=== PATIENT | female | born 1945 | race Caucasian/White ===

== ENCOUNTER 2018-05-17 10:41 | Emergency (ER) | payer MEDICARE, BC ==
[~2018-05-17] VITALS: Ht 165.1 cm; Wt 59.1 kg
[2018-05-17 11:00] VITALS: BP 148/87
[2018-05-17] MEDS ORDERED: ibuprofen 200mg tablet PO ONE (12:35)
[2018-05-17] MEDS ORDERED: acetaminophen 325mg tablet PO ONE (12:35)
[2018-05-17] MEDS ORDERED: ACET-812 PO (14:35)
== END 2018-05-17 15:05 | disposition home or self-care (01) ==
LOC: ER 10:41
DX: S52.592A Other fractures of lower end of left radius, initial encounter for closed fracture (principal); S52.612A Displaced fracture of left ulna styloid process, initial encounter for closed fracture; Z79.01 Long term (current) use of anticoagulants; W19.XXXA Unspecified fall, initial encounter; Y93.89 Activity, other specified; Y92.89 Other specified places as the place of occurrence of the external cause; Y99.9 Unspecified external cause status
CPT/HCPCS: 25605; 70450; 73110; 93005; 99284

== ENCOUNTER 2018-05-29 10:42 | Outpatient (CLI) | payer MEDICARE, BC ==
[2018-05-29 10:29] VITALS: BP 140/104
[~2018-05-29 10:42] MED LIST: ACET-812 PO
[2018-05-29 10:51] VITALS: BP 141/91
== END 2018-05-29 11:26 | disposition home or self-care (01) ==
LOC: ORTHO 10:42
PROVIDERS: ATTEND Nurse Practitioner Family
DX: S52.592A Other fractures of lower end of left radius, initial encounter for closed fracture (principal); S52.612A Displaced fracture of left ulna styloid process, initial encounter for closed fracture; W19.XXXA Unspecified fall, initial encounter; X58.XXXA Exposure to other specified factors, initial encounter; Y93.89 Activity, other specified; Y92.89 Other specified places as the place of occurrence of the external cause; Y99.8 Other external cause status
CPT/HCPCS: 73110; 99213; A4590

== ENCOUNTER 2018-06-14 15:06 | Outpatient (CLI) | payer MEDICARE, BC ==
[2018-06-14 15:08] VITALS: BP 150/94
== END 2018-06-14 15:38 | disposition home or self-care (01) ==
LOC: ORTHO 15:06
PROVIDERS: ATTEND Nurse Practitioner Family
DX: S52.615D Nondisplaced fracture of left ulna styloid process, subsequent encounter for closed fracture with routine healing (principal); S52.592D Other fractures of lower end of left radius, subsequent encounter for closed fracture with routine healing; X58.XXXD Exposure to other specified factors, subsequent encounter
CPT/HCPCS: 73110; 99213

== ENCOUNTER 2018-06-28 15:05 | Outpatient (CLI) | payer MEDICARE, BC | END 2018-06-28 15:45 | disposition home or self-care (01) | LOC: ORTHO 15:05 | PROVIDERS: ATTEND Nurse Practitioner Family | DX: S52.92XD Unspecified fracture of left forearm, subsequent encounter for closed fracture with routine healing (principal); W19.XXXD Unspecified fall, subsequent encounter | CPT/HCPCS: 73110; 99213; A4590 ==

== ENCOUNTER 2018-07-12 16:13 | Outpatient (CLI) | payer MEDICARE, BC | END 2018-07-12 16:46 | disposition home or self-care (01) | LOC: ORTHO 16:13 | PROVIDERS: ATTEND Orthopaedic Surgery | DX: S52.592D Other fractures of lower end of left radius, subsequent encounter for closed fracture with routine healing (principal); S52.615D Nondisplaced fracture of left ulna styloid process, subsequent encounter for closed fracture with routine healing; M85.842 Other specified disorders of bone density and structure, left hand; X58.XXXD Exposure to other specified factors, subsequent encounter | CPT/HCPCS: 73110; 99213 ==

== ENCOUNTER → 2018-08-24 | Outpatient (CLI) | payer BC ==
[2018-08-24 11:39] VITALS: BP 119/74
== END | disposition home or self-care (01) ==
LOC: ORTHO 11:37
PROVIDERS: ATTEND Orthopaedic Surgery
DX: S52.592D Other fractures of lower end of left radius, subsequent encounter for closed fracture with routine healing (principal); X58.XXXD Exposure to other specified factors, subsequent encounter
CPT/HCPCS: 73110; 99213

== ENCOUNTER 2022-05-28 12:34 | Emergency (ER) | payer MEDICARE, BC ==
[~2022-05-28] VITALS: Ht 165.1 cm; Wt 40.0 kg
[~2022-05-28 12:34] MED LIST changes: -ACET-812 PO; +ATEN-236 PO; +WARF1TAB83 PO
[2022-05-28 12:45] VITALS: BP 126/82
[2022-05-28] MEDS ORDERED: acetaminophen 325mg tablet PO ONE (14:10)
[2022-05-30] MEDS ORDERED: WARF-65 PO (07:56)
[2022-05-30] MEDS ORDERED: CEPH-585 PO (14:13)
[2022-05-30] MEDS ORDERED: IBUP-1985 PO (14:13)
[2022-05-30] MEDS ORDERED: CYCL-1 PO (14:13)
== END 2022-05-28 15:22 | disposition home or self-care (01) ==
LOC: ER 12:36
DX: S16.1XXA Strain of muscle, fascia and tendon at neck level, initial encounter (principal); R51.9 Headache, unspecified; R11.0 Nausea; R42 Dizziness and giddiness; Z88.8 Allergy status to other drugs, medicaments and biological substances; Z79.899 Other long term (current) drug therapy; Z79.1 Long term (current) use of non-steroidal anti-inflammatories (NSAID); X58.XXXA Exposure to other specified factors, initial encounter; Y93.89 Activity, other specified; Y92.89 Other specified places as the place of occurrence of the external cause; Y99.8 Other external cause status
CPT/HCPCS: 36415; 85610; 99283

== ENCOUNTER → 2022-05-30 | Emergency (ER) | payer MEDICARE, BC ==
[~2022-05-30] MED LIST changes: +CEPH-585 PO; +CYCL-1 PO; +CefTRIAXone 2gm/D5W 50ml BAG 50 ML IV ONE; +IBUP-1985 PO; +WARF-65 PO; +diphenhydrAMINE 50 mg/ml inj IV STA; +iohexol 300mg/ml 100ml inj. ONE; +methylPREDNISolone sod succ 125mg/2ml vial IV ONE
[2022-05-30 08:31] LABS: BASOPHILS # (AUTO) 0.1 X10'3 (0-0.2); BASOPHILS % (AUTO) 0.9 % (0-1); EOSINOPHILS # (AUTO) 0.1 X10'3 (0-0.9); EOSINOPHILS % (AUTO) 0.9 % (0-6); HEMOGLOBIN 15.4 g/dl (12.0-16.0); LYMPHOCYTES # (AUTO) 0.6 X10'3 (1.1-4.8); LYMPHOCYTES % (AUTO) 11.2 % (21-51); MEAN CORPUSCULAR HEMOGLOBIN 33.5 PG (27.0-31.0); MEAN CORPUSCULAR HGB CONC 34.2 g/dL (33.0-36.5); MEAN CORPUSCULAR VOLUME 97.9 FL (78-98); MEAN PLATELET VOLUME 8.6 FL (7.4-10.4); MONOCYTES # (AUTO) 0.5 X10'3 (0-0.9); MONOCYTES % (AUTO) 9.4 % (2-12); NEUTROPHILS # (AUTO) 4.4 X10'3 (1.8-7.7); NEUTROPHILS % (AUTO) 77.6 % (42-75); PLATELET COUNT 195 X10'3 (140-440); RED BLOOD COUNT 4.59 X10'6 (4.20-5.60); RED CELL DISTRIBUTION WIDTH 12.9 % (11.5-14.5); WHITE BLOOD COUNT 5.7 X10'3 (4.5-11.0)
[2022-05-30 08:45] LABS: APTT 41 SECONDS (22-32)
[2022-05-30 08:51] LABS: ALANINE AMINOTRANSFERASE 14 U/L (12-78); ALBUMIN 3.7 G/DL (3.4-5.0); ALKALINE PHOSPHATASE 76 IU/L (46-116); ANION GAP 8 (8-16); ASPARTATE AMINO TRANSFERASE 20 U/L (10-37); BILIRUBIN,TOTAL 1.1 MG/DL (0.1-1.0); BLOOD UREA NITROGEN 7 MG/DL (7-18); BUN/CREATININE RATIO 10.8 (6.6-38.0); CALCIUM 9.4 MG/DL (8.5-10.1); CHLORIDE 100 MMOL/L (99-107); CREATINE KINASE 19 U/L (26-192); CREATININE 0.65 MG/DL (0.40-0.90); GLUCOSE 101 MG/DL (70-104); MAGNESIUM 1.9 MG/DL (1.5-2.4); POTASSIUM 3.9 MMOL/L (3.5-5.1); SODIUM 134 MMOL/L (135-145); TOTAL PROTEIN 7.5 G/DL (6.4-8.2); eGFR 88 ML/MIN
--- NOTE | 2022-05-30 09:15 | NUR ---
pt off floor
--- NOTE | 2022-05-30 09:23 | NUR ---
pt back from ct
--- NOTE | 2022-05-30 11:50 | NUR ---
[facility] samples sent to lab . pt resting in [facility]. pt's son, Volodymyr, at bedside.
[2022-05-30 12:35] LABS: APPEARANCE,CSF CLEAR; CSF RBC 1 /CU MM (0); CSF SUPERNATANT COLOR COLORLESS; CSF VOLUME 2.4 ML; TUBE# COUNTED 4
[2022-05-30 12:38] LABS: CSF WBC CT 0 /CU MM (0-5)
[2022-05-30 12:53] LABS: CLARITY,URINE CLEAR (Clear); COLOR,URINE YELLOW (Yellow); GLUCOSE, URINE NEGATIVE (Neg); KETONES,URINE 15 mg/dl (Neg); LEUKOCYTE ESTERASE ,URINE NEGATIVE (Neg); NITRITES, URINE NEGATIVE (Neg); OCCULT BLOOD,URINE SMALL (Neg); PROTEIN,URINE NEGATIVE (Neg); UROBILINOGEN,URINE 0.2 E.U/dL (0.2-1.0)
[2022-05-30 12:57] LABS: UA COLLECTION TYPE CLN CATCH MIDSTREAM
[2022-05-30 13:00] LABS: RBC,URINE 0-2 /HPF (0-2)
[2022-05-30 13:01] LABS: BACTERIA,URINE 1+ /HPF (Neg); MUCUS STRANDS NONE SEEN /LPF (Neg); SQUAMOUS EPITHELIAL CELL,UR MODERATE /LPF (FEW)
[2022-05-30 13:02] LABS: WBC CLUMPS,URINE FEW /HPF (NEGATIVE)
[2022-05-30 14:32] LABS: GLUCOSE,CSF 59 MG/DL (40-75); TOTAL PROTEIN,CSF 39 MG/DL (30-60)
[2022-05-30 14:41] VITALS: BP 138/83
== END | disposition home or self-care (01) ==
LOC: ER 07:12
DX: S16.1XXA Strain of muscle, fascia and tendon at neck level, initial encounter (principal); M54.12 Radiculopathy, cervical region; M54.16 Radiculopathy, lumbar region; N39.0 Urinary tract infection, site not specified; Z88.8 Allergy status to other drugs, medicaments and biological substances; X58.XXXA Exposure to other specified factors, initial encounter; Y93.89 Activity, other specified; Y92.89 Other specified places as the place of occurrence of the external cause; Y99.8 Other external cause status
CPT/HCPCS: 36415; 62270; 70450; 70491; 72125; 80053; 81001; 82550; 83605; 83735; 84484; 85025; 85610; 85730; 86617; 86788; 86789; 87040; 87088; 89051; 96365; 96375; 99285; J0696; J1200; J2930; J3490; Q9967; A6449

== ENCOUNTER 2023-02-28 12:36 | Emergency (ER) | payer BC ==
[~2023-02-28] VITALS: Ht 165.1 cm; Wt 45.5 kg
[~2023-02-28 12:36] MED LIST changes: -CEPH-585 PO; -CefTRIAXone 2gm/D5W 50ml BAG 50 ML IV ONE; -WARF1TAB83 PO; -diphenhydrAMINE 50 mg/ml inj IV STA; -iohexol 300mg/ml 100ml inj. ONE; -methylPREDNISolone sod succ 125mg/2ml vial IV ONE
[2023-02-28 13:14] LABS: BASOPHILS # (AUTO) 0.1 X10'3 (0-0.2); BASOPHILS % (AUTO) 0.9 % (0-1); EOSINOPHILS # (AUTO) 0.1 X10'3 (0-0.9); EOSINOPHILS % (AUTO) 0.7 % (0-6); HEMOGLOBIN 13.4 g/dl (12.0-16.0); LYMPHOCYTES # (AUTO) 0.8 X10'3 (1.1-4.8); MEAN CORPUSCULAR HEMOGLOBIN 30.9 PG (27.0-31.0); MEAN CORPUSCULAR HGB CONC 33.6 g/dL (33.0-36.5); MEAN CORPUSCULAR VOLUME 92.2 FL (78-98); MEAN PLATELET VOLUME 9.1 FL (7.4-10.4); MONOCYTES # (AUTO) 0.9 X10'3 (0-0.9); MONOCYTES % (AUTO) 8.5 % (2-12); NEUTROPHILS # (AUTO) 8.5 X10'3 (1.8-7.7); NEUTROPHILS % (AUTO) 81.9 % (42-75); PLATELET COUNT 190 X10'3 (140-440); RED BLOOD COUNT 4.34 X10'6 (4.20-5.60); RED CELL DISTRIBUTION WIDTH 13.5 % (11.5-14.5); WHITE BLOOD COUNT 10.4 X10'3 (4.5-11.0)
[2023-02-28 13:26] LABS: APTT 33 SECONDS (22-32); PROTHROMBIN TIME 20.5 SECONDS (9.0-12.0)
[2023-02-28 13:31] LABS: ALANINE AMINOTRANSFERASE 17 U/L (12-78); ALBUMIN 3.1 G/DL (3.4-5.0); ALBUMIN/GLOBULIN RATIO 0.9 (1.1-1.5); ALKALINE PHOSPHATASE 55 IU/L (46-116); ANION GAP 6 (8-16); ASPARTATE AMINO TRANSFERASE 28 U/L (10-37); BLOOD UREA NITROGEN 21 MG/DL (7-18); BUN/CREATININE RATIO 24.7 (10.0-20.0); CALCIUM 9.2 MG/DL (8.5-10.1); CHLORIDE 103 MMOL/L (99-107); CREATININE 0.85 MG/DL (0.40-0.90); GLUCOSE 123 MG/DL (70-104); POTASSIUM 3.5 MMOL/L (3.5-5.1); SODIUM 136 MMOL/L (135-145); TOTAL CARBON DIOXIDE 27.1 MMOL/L (24-32); TOTAL PROTEIN 6.7 G/DL (6.4-8.2); eCRCL 39 ML/MIN; eGFR 65 ML/MIN
[2023-02-28] MEDS ORDERED: LORazepam 2 mg/ml vial IV ONE (13:40)
[2023-02-28 13:41] LABS: PRO BRAIN NATRIURETIC PEPTIDE 2192 PG/ML (0-450)
[2023-02-28] MEDS ORDERED: iohexol 350MG/ML 100ml bottle IV ONE (13:55)
[2023-02-28] MEDS ORDERED: iohexol 350 MG/ML 50ML vial IV ONE (13:55)
[2023-02-28] MEDS ORDERED: normal saline 1000ml 1,000 ML IV ONE (14:25)
[2023-02-28] MEDS ORDERED: iohexol 300 MG/1 ML 50ml polymer ONE (16:58)
[2023-02-28] MEDS ORDERED: acetaminophen 325mg tablet PO ONE (18:50)
[2023-02-28 19:38] VITALS: BP 121/82; PULSE 92; RESP 16; TEMP 98.3; O2SAT 100
== END 2023-02-28 19:43 | disposition home or self-care (01) ==
LOC: ER 12:37
DX: I82.492 Acute embolism and thrombosis of other specified deep vein of left lower extremity (principal)
CPT/HCPCS: 36415; 71045; 73030; 73706; 80053; 83880; 84484; 85025; 85610; 85730; 93005; 93971; 96360; 99285; J7030; Q9967